=== PATIENT | male | born 1960 | race Caucasian/White ===

== ENCOUNTER 2018-09-16 20:59 | Emergency (ER) | payer OTHER ==
[~2018-09-16] VITALS: Ht 182.9 cm; Wt 90.7 kg
[~2018-09-16 20:59] MED LIST: BACTRIM DS TAB1 EACH PO; DOXYCYCLINE 10100 MG PO; ERYTHROMYCIN E3.5 G1 OP; HTN MED PO; IBUPROFEN 800800 MG PO; KEFLEX500 M1 PO; KEFLEX500 MG PO; METFORMIN HCL500 MG PO; NORCO 5-325 TA1 EACH PO; VIBRAMYCIN 100100 MG PO
[2018-09-16] MEDS ORDERED: PRINIVIL20 M1 PO (21:14)
[2018-09-16 21:29] LABS: ABSOLUTE NEUTROPHILS 4.1 thou/uL (1.4-8.2); BASOPHILS 0.4 % (0.0-2.0); EOSINOPHILS 1.6 % (0.0-3.0); HEMATOCRIT 47.6 % (42.0-52.0); HEMOGLOBIN 16.1 gm/dL (14.0-18.0); MCH 32.6 pg (26.0-34.0); MCHC 33.7 g/dL (28.0-37.0); MCV 96.7 fL (80.0-100.0); MONOCYTES 7.4 % (1.0-8.0); PLATELET COUNT 170 thou/uL (150-400); POLYS 69.6 % (36.0-66.0); RBC 4.93 mil/uL (4.50-6.00); WBC 5.9 thou/uL (4.0-11.0)
[2018-09-16 21:48] LABS: ANION GAP 7 mmol/L (7-16); BUN 13 mg/dL (7-18); CALCIUM 8.9 mg/dL (8.5-10.1); CHLORIDE 101 mmol/L (98-107); CO2 29 mmol/L (21-32); CREATININE 0.9 mg/dL (0.7-1.3); GLUCOSE 147 mg/dL (74-106); SODIUM 137 mmol/L (136-145)
[2018-09-16 21:56] LABS: ALBUMIN 3.8 g/dL (3.4-5.0); MAGNESIUM 2.1 mg/dL (1.8-2.4); SGOT 39 U/L (15-37); SGPT 35 U/L (30-65); TOTAL BILIRUBIN 0.6 mg/dL (<0.1-1.0); TROPONIN-I <0.06 ng/mL (<0.06)
[2018-09-16] MEDS ORDERED: NAPROSYN500 MG PO (22:41)
[2018-09-16 23:00] VITALS: BP 141/86
--- NOTE | 2018-09-17 09:05 | EKG ---
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 : 1960 Requested By: Rio Ortiz Order Number: [id number] MD: Ousmane Lawson Measurements Intervals [place] Rate: 104 P: 34 CO: 138 QRS: -19 QRSD: 99 T: 66 QT: 338 QTc: 445 Interpretive Statements Sinus tachycardia RSR' in V1 or V2, right VCD Left ventricular hypertrophy No previous ECG available for comparison Electronically Signed On 09-17-2018 9:05:27 CDT by Ousmane Lawson [email or web address] ��������������������������������������������� <ELECTRONICALLY SIGNED> ���������������������������������������� By: Ousmane Lawson MD, [facility] ��������������������������������������������� 09/17/18904 02 02 Ousmane Lawson MD, FACC /EPI
== END 2018-09-16 23:00 | disposition home or self-care (01) ==
LOC: ER 20:59
PROVIDERS: Emergency Medicine
DX: R07.89 Other chest pain (principal); R05 Cough; I10 Essential (primary) hypertension; E11.9 Type 2 diabetes mellitus without complications; Z87.891 Personal history of nicotine dependence

== ENCOUNTER 2020-04-22 20:46 | Inpatient (IN) | payer OTHER ==
[~2020-04-22] VITALS: Ht 185.4 cm; Wt 95.9 kg
[~2020-04-22 20:46] MED LIST changes: +NAPROSYN500 MG PO; +PRINIVIL20 M1 PO
[2020-04-22 20:48] VITALS: BP 150/88
[2020-04-22 21:09] LABS: ABSOLUTE NEUTROPHILS 3.9 thou/uL (1.4-8.2); BASOPHILS 0.6 % (0.0-2.0); EOSINOPHILS 1.6 % (0.0-3.0); HEMATOCRIT 44.6 % (42.0-52.0); HEMOGLOBIN 14.8 gm/dL (14.0-18.0); LYMPHOCYTES 34.2 % (24.0-44.0); MCH 32.2 pg (26.0-34.0); MCHC 33.2 g/dL (28.0-37.0); MONOCYTES 9.4 % (1.0-8.0); PLATELET COUNT 236 thou/uL (150-400); POLYS 54.2 % (36.0-66.0); RBC 4.59 mil/uL (4.50-6.00); RDW 12.9 % (10.5-14.5); WBC 7.2 thou/uL (4.0-11.0)
[2020-04-22 21:19] LABS: CALCIUM 8.4 mg/dL (8.5-10.1); CREATININE 0.8 mg/dL (0.7-1.3); POTASSIUM 3.8 mmol/L (3.5-5.1)
[2020-04-22 21:29] LABS: ALBUMIN 3.6 g/dL (3.4-5.0); MAGNESIUM 2.1 mg/dL (1.8-2.4); TOTAL BILIRUBIN 0.3 mg/dL (0.2-1.0); TOTAL PROTEIN 7.5 g/dL (6.4-8.2); TROPONIN-I 0.18 ng/mL (<0.06)
[2020-04-23] VITALS (15 sets, daily range): BP systolic 112–157; BP diastolic 63–105
[2020-04-23 00:25] LABS: CHOLESTEROL 194 mg/dL (<200); HDL CHOLESTEROL 63 mg/dL (>40); LDL CHOLESTEROL 93 mg/dL (<100); SERUM ASSESSMENT Clear; TC:HDL 3.1 Ratio (Not establshd); TRIGLYCERIDE 191 mg/dL (<150); VLDL 38 mg/dL (<40)
[2020-04-23 02:48] LABS: AMP/METHAMP Negative (Negative); BARBITURATES Negative (Negative); BENZODIAZEPINES Negative (Negative); COCAINE Negative (Negative); METHADONE Negative (Negative); OPIATES Negative (Negative); PCP Negative (Negative)
[2020-04-23 04:05] LABS: PHOSPHORUS 2.6 mg/dL (2.5-4.9)
[2020-04-23 04:49] LABS: FOLIC ACID 14.6 ng/mL (8.6-58.9)
[2020-04-23 06:41] LABS: CALCIUM 8.5 mg/dL (8.5-10.1); CREATININE 0.7 mg/dL (0.7-1.3); POTASSIUM 4.6 mmol/L (3.5-5.1)
--- NOTE | 2020-04-23 07:47 | EKG ---
[facility] [place] [address] ELECTROCARDIOGRAM REPORT Name: RUDI ANGLIN Room #: 170-17 ADM IN M.R.#: [id number] Admission: 04/22/20 Attend Phys: Diana Dyer MD Discharge: Date of : 58 Report #: [id number] THIS REPORT FOR: cc: SORAYA - Shyanne family physician/PCP SORAYA - Shyanne family physician/PCP Ayan Ferrell MD 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 : 1960 Requested By: Rio Ortiz Order Number: [id number] MD: Ayan Ferrell Measurements Intervals [place] Rate: 159 P: [place]: QRS: -18 QRSD: 86 T: 115 QT: 262 QTc: 427 Interpretive Statements Atrial fibrillation RSR' in V1 or V2, right VCD or RVH LVH with secondary repolarization abnormality ST depression, probably rate related Compared to ECG 09/16/2018 21:03:50 Right ventricular hypertrophy now present Early repolarization now present ST (T wave) deviation now present Sinus tachycardia no longer present Electronically Signed On 04-23-2020 7:47:04 CDT by Ayan Ferrell [email or web address] <ELECTRONICALLY SIGNED> By: Ayan Ferrell MD, [facility] 04/23/20 0747 48 48 Ayan Ferrell MD, [facility] /EPI
--- NOTE | 2020-04-23 07:48 | EKG ---
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 : 1960 Requested By: Maria Elena Chase Order Number: [id number] MD: Ayan Ferrell Measurements Intervals [place] Rate: 92 P: [place]: QRS: -16 QRSD: 100 T: 58 QT: 347 QTc: 430 Interpretive Statements Atrial fibrillation Abnormal R-wave progression, early transition Left ventricular hypertrophy Compared to ECG 04/22/2020 20:49:26 Right ventricular hypertrophy no longer present Early repolarization no longer present ST (T wave) deviation no longer present Electronically Signed On 04-23-2020 7:48:28 CDT by Ayan Ferrell [email or web address] <ELECTRONICALLY SIGNED> By: Ayan Ferrell MD, FACC 04/23/20 0748 1 1 Ayan Ferrell MD, FAC /EPI
--- NOTE | 2020-04-23 07:59 | NUR ---
ASSUMED PATIENT CARE AT 0000. PATIENT ALERT AND ORIENTED AND ABLE TO CALL APPROPRIATELY FOR NEEDS AND PARTICIPATE IN CARE. NO COMPLAINTS OF PAIN, CHEST OR OTHERWISE. CARDIZEM GTT TO GOOD EFFECT WITH RATES CONTROLLED. CRITICALLY HIGH TROPONIN THIS MORNING WITH ORDERS FOR PATIENT TO BE PLACED ON HEPARIN GTT. UP MULTIPLE TIMES TO URINATE INCIDENT FREE. CONTINUE PLAN OF CARE.
--- NOTE | 2020-04-23 08:06 | NUR ---
TO DIRECTOR OF FOOD AND NUTRITION AT 2637
--- NOTE | 2020-04-23 17:24 | CATHLAB ---
[facility] [place] [address] INVASIVE PROCEDURE REPORT Name: RUDI ANGLIN Room #: 205-P ADM IN M.R.#: [id number] Admission: 04/22/20 Attend Phys: Diana Dyer MD Discharge: Date of : 58 Report #: [id number] THIS REPORT FOR: cc: FAM - No family physician/PCP FAM - No family physician/PCP Jorge Joaquin MD [facility] ~ APPROVED REPORT Study performed: 04/23/2020 06:43:07 Patient Details Patient Status: ED Room #: The patient is a 59 year-old male Event Personnel Jorge Joaquin Poultryman, Omaira Olivier RTR ScrWilber antoine Tony RN RN, Danni Ortiz RTR Monitor Procedures Performed Left Heart Cath w/or w/o Coronaries [id number] [facility] Place w/wo Plasty Single LAD 596994 Art Access - R femoral artery* 06709 Initial Mod Sed Same Phys/QHP Gr5y 643307 58902 Mod Sed Same Phys/QHP Ea [id number] Indication Chest pain Procedure Narrative The patient was brought urgently to the Cardiac Catheterization Laboratory and was prepped and draped in a sterile manner. The Right Groin^ was infiltrated with 1% Lidocaine subcutaneous anesthesia. A PINNACLE 6FR Sheath #[id number] sheath was inserted into the RFA^. Coronary angiography was performed using coronary diagnostic catheters. The right coronary system was accessed and visualized with a JR4 catheter. The left coronary system was accessed and visualized with a JL4 catheter. The left ventricle was accessed and visualized with a STRAIGHT PIGTAIL catheter. An aortogram of the abdominal aorta was performed. Closure device was deployed with a Fr 6FR MYNX MANAGER DAIRY. The patient tolerated the procedure well and there were no complications associated with the procedure. There was no hematoma. Intraoperative Conscious Sedation Sedation start time: 9:37 Case end Time: [facility] [place] [address] INVASIVE PROCEDURE REPORT Name: RUDI ANGLIN Room #: 205-P [facility] IN ..#: [id number] Admission: 04/22/20 Attend Phys: Tsering Krause Discharge: Date of : 58 Report #: [id number] 10:45 Fentanyl 100 mcg Versed 4 mg Fluoro Time: 10.90 minutes Dose: DAP 66091.60 cGycm2 3575 mGy Contrast Type and Amount: Visipaque 185 ml Hemodynamics The aortic pressure is 120/81 mmHg with a mean of 97 mmHg. The left ventricular pressure is 119/10 mmHg with a mean of mmHg. The left ventricular end diastolic pressure is 17 mmHg. PCI Technique Lesion Percutaneous coronary intervention was performed on the distal left anterior descending artery segment. A LAUNCHER 6FR EBU 3.5 #[id number] Guide Catheter was used to engage the LAD ostium. A Luge Wire .014 x 182CM #[id number] Interventional Guidewire was used to cross the lesion. BALLOON DILATION A Balloon catheter Sprinter OTW 2.25 x 15 #[id number] was inserted and inflated up to 8atm for 8seconds. Additional Inflation: 6.00atm for 19seconds. Additional Inflation: 6.00atm for 11seconds. PCI Technique Lesion 2 Percutaneous coronary intervention was performed on the proximal left anterior descending artery segment. A LAUNCHER 6FR EBU 3.5 #[id number] Guide Catheter was used to engage the LAD ostium. A Luge Wire .014 x 182CM #[id number] Interventional Guidewire was used to cross the lesion. Balloon Dilation A Balloon catheter Sprinter OTW 2.25 x 15 #[id number] was inserted and inflated up to 10atm for 19seconds. Additional Inflation: 12atm for 18seconds. Additional Inflation: 18atm for 24seconds. Stent Deployment A stent RESOLUTE TAMIKO RX 2.75 X 38 #[id number] was inserted and inflated up to 14atm for 37seconds. Post Stent Deployment Balloon Dilation A Balloon catheter TREK NC OTW 3.0 X 15 #[id number] was inserted and inflated up to 10atm for 20seconds. Additional Inflation: 16atm for 24seconds. Additional Inflation: 16atm for 16seconds. Conclusion [facility] [address] [place] [address] INVASIVE PROCEDURE REPORT Name: RUDI ANGLIN Room #: 205-P [facility] IN M.R.#: [id number] Admission: 04/22/20 Attend Phys: Tsering Krause Discharge: Date of : 58 Report #: [id number] #1. Successful PTCA stent of subtotaled proximal and proximal mid LAD lesions with moderate calcification. Placement of a 2.75 x 38 resolute Tamiko stent postdilated to 3.0 mm in size JOVANNA grade III flow. #2 successful PTCA of a high-grade distal LAD lesion with balloon angioplasty alone. 90% to 20% with JOVANNA grade III flow this extends around the apex. There is a moderate 70% mid vessel lesion calcified at a diagonal takeoff we will treat this medically. #3 left main with mild disease giving rise to the LAD and circumflex. #4 circumflex OM is nondominant moderate in size the first OM has a 70% eccentric lesion moderate distribution will follow the mid distal circumflex also has a 70% lesion will follow filling a smaller distal OM or PDA equivalent codominant vessel. #5 mildly diseased and relatively small codominant RCA giving rise to a small PDA diffusely diseased #6 normal left jugular size with anterior apical hypokinesis EF 50% range. #7 abdominal aorta is intact without evidence of significant aneurysm mild tortuosity noted. Recommendations and plan: Continue aggressive risk factor modification. Dual antiplatelet therapy initiated. Patient had extremely complex LAD disease but final result is very acceptable. Moderate mid distal LAD and circumflex stenoses will follow. Transfer to CCU in stable condition chest pain-free and hemodynamically intact <ELECTRONICALLY SIGNED> By: Jorge Joaquin MD, FACC 04/23/201723 23 23 Jorge Joaquin MD, FACC /INF
--- NOTE | 2020-04-23 19:50 | NUR ---
PATIENT TO THE UNIT POST CARDIAC CATH - PT ORIENTED TO ROOM AND BEDSPACE. NO CO'S OF PAIN OR NAUSEA. VIDAL DIET AND FLUIDS. PT UP IN ROOM PRIOR TO BEDREST RESTRICTION DONE AFTER BEING INFORMED THAT HE COULD NOT GET UP - GROIN SITE HAS REMINED STABLE. PT IN A FIB - WHEN AT REST RATE IN THE 80'S POST BEDREST PT UP TO THE CHAIR AND WHEN HE MOVES AROUND RATE CAN GET INTO THE 140'S THEN COMES BACK DOWN AGAIN - CARDIZEM REMAINS AT 5 MGS AN HOUR. IV FLUIDS INFUSING ORDERED. NO CO'S AT THE PRESENT TIME.
[2020-04-24 00:11] VITALS: BP 123/87
[2020-04-24 02:06] LABS: GLYCOHEMOGLOBIN (HGB A1C) 5.2 % (4.8-5.6)
[2020-04-24 04:05] VITALS: BP 137/90
--- NOTE | 2020-04-24 04:30 | NUR ---
ASSESSMENT DOCUMENTED. PT BEEN RESTING IN NO ACUTE DISTRESS.A/OX4.VSS.S/P CARDIAC AMERICO.PT WAS ON CARDIZEM DRIP AT THE BEGINNING OF THE SHIFT.BY MIDNIGHT PT HAD CONVERTED TO SINUS RHYTHM IN 60S.CARDIZEM DRIP TURNED OFF.PT HAS MAINTAINED SINUS RHYTHM IN 60S.DENIES CHEST PAIN OR ANY DISTRESS.PT ANTICIPATING DISCHARGE THIS AM.
[2020-04-24 06:30] LABS: HEMATOCRIT 44.2 % (42.0-52.0); HEMOGLOBIN 14.7 gm/dL (14.0-18.0); MCH 32.5 pg (26.0-34.0); MCHC 33.3 g/dL (28.0-37.0); MCV 97.6 fL (80.0-100.0); RBC 4.53 mil/uL (4.50-6.00); RDW 13.1 % (10.5-14.5); WBC 6.9 thou/uL (4.0-11.0)
[2020-04-24 06:48] LABS: ALBUMIN 3.3 g/dL (3.4-5.0); CALCIUM 8.5 mg/dL (8.5-10.1); CREATININE 0.8 mg/dL (0.7-1.3); POTASSIUM 4.2 mmol/L (3.5-5.1); TOTAL BILIRUBIN 0.7 mg/dL (0.2-1.0); TOTAL PROTEIN 7.1 g/dL (6.4-8.2)
[2020-04-24 06:49] LABS: TROPONIN-I 1.03 ng/mL (<0.06)
--- NOTE | 2020-04-24 07:41 | EKG ---
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 : 1960 Requested By: Patricia Brown Order Number: [id number] MD: Ousmane Lawson Measurements Intervals [place] Rate: 65 P: 37 [place]: 149 QRS: -24 QRSD: 108 T: 70 QT: 418 QTc: 435 Interpretive Statements Sinus arrhythmia Abnormal R-wave progression, early transition LVH with secondary repolarization abnormality Compared to ECG 04/23/2020 05:22:58 Early R wave progression is now present Atrial fibrillation no longer present Electronically Signed On 04-24-2020 7:41:05 CDT by Ousmane Lawson [email or web address] <ELECTRONICALLY SIGNED> By: Ousmane Lawson MD, FACC 04/24/2041 5 5 Ousmane Lawson MD, FACC /EPI
[2020-04-24] MEDS ORDERED: ASPIR 8181 MG PO (08:00)
[2020-04-24] MEDS ORDERED: COZAAR 50 MG TA50 MG PO (08:00)
[2020-04-24] MEDS ORDERED: METOPROLOL SUCC50 MG PO (08:00)
[2020-04-24] MEDS ORDERED: LIPITOR40 MG PO (08:00)
[2020-04-24] MEDS ORDERED: PLAVIX 75 MG TA75 MG PO (08:00)
--- NOTE | 2020-04-24 08:44 | 2DMMODE ---
[facility] [place] [address] 2 D/M-MODE ECHOCARDIOGRAM Name: RUDI ANGLIN HALINA Room #: 205-P ADM IN M.R.#: [id number] Admission: 04/22/20 Attend Phys: Diana Dyer MD Discharge: Date of : 58 Report #: [id number] THIS REPORT FOR: cc: FAM - No family physician/PCP FAM - No family physician/PCP Ousmane Lawson MD [facility] ~ APPROVED REPORT Study performed: 04/24/2020 07:51:46 EXAM: Comprehensive 2D, Doppler, and color-flow Echocardiogram Patient Location: Bedside Room #: 205 Status: routine BSA: 2.20 HR: 68 bpm BP: 137/90 mmHg Rhythm: NSR Other Information Study Quality: Adequate Indications NSTEMI S/P Intervention. Afib. Hx: HTN, DM. Echo Enhancing Agent Indication: Endocardial border delineation Agent(s) / Amount(s) Used: Optison 4 cc 2D Dimensions RVDd: 35.53 mm IVSd: 10.94 (7-11mm) LVOT Diam: 21.80 (18-24mm) LVDd: 49.37 mm PWd: 10.52 (7-11mm) Ascending Ao: 39.66 (22-36mm) LVDs: 36.32 (25-40mm) Aortic Root: 36.02 mm Volumes Left Atrial Volume (Systole) Single Plane 4CH: 48.92 mL Single Plane 2CH: 58.97 mL LA ESV Index: 26.00 mL/m2 Aortic Valve [facility] [place] [address] 2 D/M-MODE ECHOCARDIOGRAM Name: RUDI ANGLIN Room #: 205-P ADM IN M.R.#: [id number] Admission: 04/22/20 Attend Phys: Tsering Krause Discharge: Date of : 58 Report #: [id number] AoV Peak Gopal.: 1.32 m/s AO Peak Gr.: 7.02 mmHg LVOT Max P.76 mmHg LVOT Max V: 0.83 m/s AMBAR Vmax: 2.34 cm2 Mitral Valve E/A Ratio: 1.2 MV Decel. Time: 209.86 ms MV E Max Gopal.: 0.59 m/s MV A Gopal.: 0.50 m/s MV PHT: 60.86 ms IVRT: 78.43 ms Pulmonary Valve PV Peak Gopal.: 1.06 m/s PV Peak Gr.: 4.49 mmHg Pulmonary Vein P Vein S: 0.35 m/s P Vein A: 0.34 m/s P Vein D: 0.25 m/s P Vein A Dur.: 129.2 msec P Vein S/D Ratio: 1.40 Tricuspid Valve TR Peak Gopal.: 2.37 m/s RAP Estimate: 5.00 mmHg TR Peak Gr.: 22.49 mmHg PA Pressure: 27.00 mmHg Left Ventricle The left ventricle is normal size. There is normal LV segmental wall motion. Mild septal hypertrophy is present. Left ventricular systolic function is normal. LVEF is 55-60%. Moderate diastolic dysfunction is present. Right Ventricle The right ventricle is normal size. The right ventricular systolic function is normal. Atria The left atrium size is normal. The right atrium size is normal. Aortic Valve The aortic valve is normal in structure No aortic regurgitation is present. There is no aortic valvular stenosis. Mitral Valve The mitral valve is normal in structure. Trace mitral regurgitation. [facility] [address] [place] [address] 2 D/M-MODE ECHOCARDIOGRAM Name: RUDI ANGLIN HALINA Room #: [facility] IN .R.#: [id number] Admission: 04/22/20 Attend Phys: Tsering Krause Discharge: Date of : 58 Report #: [id number] No evidence of mitral valve stenosis. Tricuspid Valve The tricuspid valve is normal in structure. Trace tricuspid regurgitation. Estimated PAP is 25-30mmHg. Pulmonic Valve The pulmonary valve is normal in structure. Trace pulmonic regurgitation. Great Vessels The aortic root is normal in size. The ascending aorta is mildly dilated (4.0cm). IVC is normal in size and collapses >50% with inspiration. Pericardium There is no pericardial effusion. <Conclusion> Left ventricular systolic function is normal. There is normal LV segmental wall motion. LVEF is 55-60%. Moderate diastolic dysfunction The aortic valve is normal in structure. No aortic regurgitation or stenosis The mitral valve is normal in structure. Trace mitral regurgitation. Trace tricuspid regurgitation. Estimated pulmonary artery pressure of 25-30mmHg. The ascending aorta is mildly dilated (4.0cm). There is no pericardial effusion. <ELECTRONICALLY SIGNED> By: Ousmane Lawson MD, FACC 04/24/2044 3 3 Ousmane Lawson MD, FACC /INF
[2020-04-24 11:40] VITALS: BP 137/90
--- NOTE | 2020-04-24 12:07 | NUR ---
ASSESSMENT CHARTED - MEDS PER JOSEP DRAKE DIET AND FLUIDS. NO CO'S OF PAIN OR NAUSEA. UP AD TAO ON THE UNIT. ECHO COMPLETED THIS AM ORDERED - PT HOME - INSTRUCTION RE HOME MEDS/ CARE AND FOLLOW UP GIVEN TO PATIENT - STATED UNDERSTANDING ON INSTSRUCTION GIVEN - SEEN BE CARDIAC REHAB THIS AM. LEFT UNIT AMBULATORY ACCOM BY NURSE - HOME VIA PVT VEHICLE ACCOMPANIED BY DEBRA. IV AND MONITOR REMOVED PRIOR TO D/C. NO CO'S AT TIME OF DISCHARGE.
== END 2020-04-24 12:00 | disposition home or self-care (01) | DRG 246 ==
LOC: ER 20:46 → EROBS 22:22 → 2N 22:22
PROVIDERS: Emergency Medicine; Nurse Practitioner Adult Health; Nurse Practitioner Family; ADMIT Hospitalist; ATTEND Hospitalist
PROC: B211YZZ Fluoroscopy of Multiple Coronary Arteries using Other Contrast (ICD-10-PCS; principal; 2020-04-23)
PROC: 4A023N7 Measurement of Cardiac Sampling and Pressure, Left Heart, Percutaneous Approach (ICD-10-PCS; principal; 2020-04-23)
PROC: B410YZZ Fluoroscopy of Abdominal Aorta using Other Contrast (ICD-10-PCS; principal; 2020-04-23)
PROC: 02703ZZ Dilation of Coronary Artery, One Artery, Percutaneous Approach (ICD-10-PCS; principal; 2020-04-23)
PROC: 027034Z Dilation of Coronary Artery, One Artery with Drug-eluting Intraluminal Device, Percutaneous Approach (ICD-10-PCS; principal; 2020-04-23)
DX: I21.4 Non-ST elevation (NSTEMI) myocardial infarction (principal); I50.31 Acute diastolic (congestive) heart failure; I48.20 Chronic atrial fibrillation, unspecified; E11.9 Type 2 diabetes mellitus without complications; I10 Essential (primary) hypertension; M19.90 Unspecified osteoarthritis, unspecified site; F10.10 Alcohol abuse, uncomplicated; I25.10 Atherosclerotic heart disease of native coronary artery without angina pectoris; Y90.9 Presence of alcohol in blood, level not specified; I16.0 Hypertensive urgency; Z79.899 Other long term (current) drug therapy; Z79.84 Long term (current) use of oral hypoglycemic drugs; Z87.891 Personal history of nicotine dependence; Z91.14 Patient's other noncompliance with medication regimen
CPT/HCPCS: 10081

== ENCOUNTER 2020-04-27 19:49 | Inpatient (IN) | payer OTHER ==
[~2020-04-27] VITALS: Ht 185.4 cm; Wt 102.5 kg
[~2020-04-27 19:49] MED LIST changes: +ASPIR 8181 MG PO; +COZAAR 50 MG TA50 MG PO; +LIPITOR40 MG PO; +METOPROLOL SUCC50 MG PO; +PLAVIX 75 MG TA75 MG PO
[2020-04-27 19:59] VITALS: BP 169/96
[2020-04-27 20:21] LABS: ABSOLUTE NEUTROPHILS 5.4 thou/uL (1.4-8.2); BASOPHILS 0.4 % (0.0-2.0); EOSINOPHILS 0.7 % (0.0-3.0); HEMOGLOBIN 15.6 gm/dL (14.0-18.0); LYMPHOCYTES 13.2 % (24.0-44.0); MCH 32.8 pg (26.0-34.0); MCV 96.5 fL (80.0-100.0); MONOCYTES 8.5 % (1.0-8.0); PLATELET COUNT 233 thou/uL (150-400); POLYS 77.2 % (36.0-66.0); RBC 4.77 mil/uL (4.50-6.00); RDW 12.8 % (10.5-14.5); WBC 6.9 thou/uL (4.0-11.0)
[2020-04-27 20:29] LABS: CALCIUM 8.7 mg/dL (8.5-10.1); POTASSIUM 4.2 mmol/L (3.5-5.1)
[2020-04-27 20:39] LABS: ALBUMIN 3.7 g/dL (3.4-5.0); TOTAL BILIRUBIN 0.5 mg/dL (0.2-1.0); TOTAL PROTEIN 7.8 g/dL (6.4-8.2); TROPONIN-I 0.11 ng/mL (<0.06)
[2020-04-27 22:51] VITALS: BP 155/94
[2020-04-27 23:01] VITALS: BP 155/94
[2020-04-27 23:15] VITALS: BP 158/99
--- NOTE | 2020-04-28 01:41 | NUR ---
RECEIVED REPORT FROM GERTRUDIS BLACKMON RN.PATIENT A/O X 4.DENIES CHEST PAIN AND SOB.MONITOR SHOWS SR,NPO SINCE MIDNIGHT.POC CONTINUED.
[2020-04-28 02:36] LABS: ABSOLUTE NEUTROPHILS 4.6 thou/uL (1.4-8.2); BASOPHILS 0.6 % (0.0-2.0); EOSINOPHILS 1.3 % (0.0-3.0); HEMATOCRIT 46.2 % (42.0-52.0); HEMOGLOBIN 15.3 gm/dL (14.0-18.0); LYMPHOCYTES 22.4 % (24.0-44.0); MCH 32.4 pg (26.0-34.0); MCHC 33.2 g/dL (28.0-37.0); MCV 97.6 fL (80.0-100.0); MONOCYTES 10.4 % (1.0-8.0); PLATELET COUNT 234 thou/uL (150-400); POLYS 65.3 % (36.0-66.0); RBC 4.74 mil/uL (4.50-6.00); RDW 12.9 % (10.5-14.5); WBC 7.1 thou/uL (4.0-11.0)
[2020-04-28 02:42] LABS: CALCIUM 8.6 mg/dL (8.5-10.1); MAGNESIUM 2.1 mg/dL (1.8-2.4); POTASSIUM 4.2 mmol/L (3.5-5.1)
[2020-04-28 04:53] VITALS: BP 144/89
[2020-04-28 08:14] VITALS: BP 148/100
--- NOTE | 2020-04-28 10:22 | 2DMMODE ---
[address] [address] 2 D/M-MODE ECHOCARDIOGRAM Name: RUDI ANGLIN Room #: 208-P ADM IN M.R.#: [id number] Admission: 04/27/20 Attend Phys: Mando Wilcox Discharge: Date of : 58 Report #: [id number] THIS REPORT FOR: cc: SORAYA - Shyanne family physician/PCP SORAYA - No family physician/PCP Ayan Ferrell MD [facility] ~ APPROVED REPORT Study performed: 04/28/2020 09:38:59 EXAM: Limited 2D Echocardiogram Patient Location: Bedside Room #: 208 Status: routine BSA: 2.26 HR: 66 bpm BP: 148/100 mmHg Rhythm: NSR Other Information Study Quality: Good Indications Limited follow up echo for LV function; chest pain. Status post NSTEMI with PCI on 04/23/2020. Hx: Afib, HTN, HLP, DM, ETOH abuse. Left Ventricle The left ventricle is normal size. Left ventricular systolic function is normal. LVEF is 50-55%. Right Ventricle The right ventricle is normal size. The right ventricular systolic function is normal. Atria The left atrium size is normal. The right atrium size is normal. Aortic Valve The aortic valve is normal in structure. Mitral Valve The mitral valve is normal in structure. [address] [address] 2 D/M-MODE ECHOCARDIOGRAM Name: RUDI ANGLIN HALINA Room #: 208-P ADM IN M.R.#: [id number] Admission: 04/27/20 Attend Phys: Mando Aguilar Discharge: Date of : 58 Report #: [id number] Tricuspid Valve The tricuspid valve is normal in structure. Pulmonic Valve The pulmonary valve is normal in structure. Great Vessels IVC is normal in size and collapses >50% with inspiration. Pericardium There is no pericardial effusion. <Conclusion> Normal left ventricle size, wall thickness and systolic function, ejection fraction of 55% Mild distal anteroapical hypokinesis Adequate cusp excursion both the mitral as well as aortic valve Tricuspid aortic valve No pericardial effusion <ELECTRONICALLY SIGNED> By: Ayan Ferrell MD, FACC 04/28/20 1021 102 20 Ayan Ferrell MD, FACC /INF
--- NOTE | 2020-04-28 13:54 | CATHLAB ---
[facility] [address] [address] INVASIVE PROCEDURE REPORT Name: RUDI ANGLIN Room #: 208-P ADM IN M.R.#: [id number] Admission: 04/27/20 Attend Phys: Mando Wilcox Discharge: Date of : 58 Report #: [id number] THIS REPORT FOR: cc: FAM - No family physician/PCP FAM - No family physician/PCP Marcus Thurman MD ~ APPROVED REPORT Study performed: 04/28/2020 12:02:41 Patient Details The patient is a 59 year-old male Event Personnel Marcus Thurman Compounder [employer], Ion Collins RTR Monitor, Susan Alaniz RTR Scrub, Omaira Olivier RTR Scrub, Julita Clarke RN RN, Silas Dia RN RN, Rosibel Centeno RN pantograph machine operator Performed Art Access - L femoral artery* Left Heart Cath w/or w/o Coronaries [id number] [facility] ANGIE Place w/wo Plasty Single OM [id number] Hemostasis w/ Mynx Indication Dyspnea, Unstable angina , Chest pain Risk Factors HypercholesterolemiaPhysical Activity, Coronary Artery DiseaseHypertension, Diabetes Previous Procedures/Diagnoses Previous PCI, Previous [place] Procedure Narrative The Left Groin^ was infiltrated with 1% Lidocaine subcutaneous anesthesia. A PINNACLE 6FR Sheath #[id number] sheath was inserted into the LFA^. Coronary angiography was performed using coronary diagnostic catheters. The right coronary system was accessed and visualized with a JR4 catheter. The left coronary system was accessed and visualized with a JL4 catheter. Left ventricular/Aortic Valve gradient assessed via catheter pullback. Pre-demployment femoral angiogram was performed . Closure device was deployed with a 6 Fr MYNXGRIP 6/7F #[id number]. Hemostasis was obtained with manual pressure following sheath removal without any complications. The patient [facility] [place] [address] INVASIVE PROCEDURE REPORT Name: RUDI ANGLIN VERNON Room #: 208-[facility] IN ..#: [id number] Admission: 04/27/20 Attend Phys: Mando Aguilar Discharge: Date of : 58 Report #: [id number] tolerated the procedure well and there were no complications associated with the procedure. There was no hematoma. Intraoperative Conscious Sedation Sedation start time: 1206 Case end Time: 1310 Fentanyl 50 mcg Versed 1 mg Fluoro Time: 10.26 minutes Dose: DAP 55478.60 cGycm2 1819 mGy Contrast Type and Amount: Omnipaque 240 ml Coronary Angiography The patient's coronary anatomy is co- dominant. Diagnostic Cath Left Main The left main artery is a large-caliber vessel, patent with no flow-limiting lesions. LAD There is a stent in the proximal LAD segment, patent with mild restenosis within the mid portion of the stent. The mid/distal LAD tapers down to a small to moderate-sized caliber vessel. There appears to be mild diffuse disease within the mid segment. Diagonal 1 This is a small caliber vessel, jailed by the stent. Diagonal 2 This is a small to moderate size caliber vessel, patent with no flow-limiting lesions. Circumflex The left circumflex artery is a moderate-sized caliber vessel, codominant. There is a mild stenosis in the distal segment, 30%. OM1 This is a moderate-sized caliber vessel with a severe proximal stenosis, 80%. OM2 This is a moderate size caliber vessel, with a moderate stenosis in the proximal segment, 50%. Right Coronary The RCA vessel has mild disease in the mid segment. R PDA There is mild to moderate diffuse disease within the mid segment, 30 to 40%. Left Ventriculography Left Ventriculography was not performed. Ejection Fraction was >55% based off patient's Echocardiogram. An LVEDP was measured and there is no gradient across across the outflow tract. Hemodynamics The aortic pressure is 160/82 mmHg with a mean of 104 mmHg. The left ventricular pressure is 146/10 mmHg with a mean of mmHg. The [address] [address] INVASIVE PROCEDURE REPORT Name: RUDI ANGLIN Room #: 208-P [facility] IN M.R.#: [id number] Admission: 04/27/20 Attend Phys: Mando Aguilar Discharge: Date of : 58 Report #: [id number] ventricular end diastolic pressure is 18 mmHg. PCI Technique Lesion Percutaneous coronary intervention was performed on the first obtuse marginal branch segment. The lesion stenosis prior to intervention was 80% with JOVANNA 3 flow. A VISTA 6FR XB 3.5 #[id number] Guide Catheter was used to engage the OM ostium. A Luge Wire .014 x 182CM #[id number] Interventional Guidewire was used to cross the lesion. BALLOON DILATION A Balloon catheter TREK RX 2.50 X 8 #[id number] was inserted and inflated up to 8.00atm for 8seconds. Additional Inflation: 12.00atm for 19seconds. Additional Inflation: 8.00atm for 11seconds. STENT DEPLOYMENT A drug-eluting stent RESOLUTE TAMIKO RX 2.75 X 18 #[id number] was inserted and inflated up to 14.00atm for 19seconds. Additional Inflation: 16.00atm for 11seconds. POST STENT DEPLOYMENT BALLOON DILATION A Balloon catheter TREK NC RX 3.0 X 12 #[id number] was inserted and inflated up to 16.00atm for 16seconds. Additional Inflation: 14.00atm for 11seconds. Additional Inflation: 16.00atm for 17seconds. Final angiography reveals 0 % stenosis with JOVANNA 3 flow. Conclusion 1. Successful insertion of a drug-eluting stent into the first obtuse marginal artery. 2. There is a widely patent stent in the proximal LAD with mild restenosis in the midportion of the stent. 3. There is a moderate stenosis in the second obtuse marginal artery. 4. There is mild diffuse disease within the mid segment of the LAD. 5. Recommend dual antiplatelet therapy and aggressive risk factor management. <ELECTRONICALLY SIGNED> By: Marcus Thurman MD 04/28/20 1354 1354 1354 Marcus Thurman MD /INF
--- NOTE | 2020-04-28 15:38 | EKG ---
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 : 1960 Requested By: Marcus Thurman Order Number: [id number] MD: Ayan Ferrell Measurements Intervals [place] Rate: 61 P: 5 MI: 159 QRS: -17 QRSD: 105 T: 29 QT: 429 QTc: 432 Interpretive Statements Sinus rhythm RSR' in V1 only Left ventricular hypertrophy Compared to ECG 04/24/2020 07:36:17 Sinus arrhythmia no longer present Early repolarization no longer present Electronically Signed On 04-28-2020 15:38:12 CDT by Ayan Ferrell [email or web address] <ELECTRONICALLY SIGNED> By: Ayan Ferrell MD, FACC 04/28/20 1538 1320 1320 Ayan Ferrell MD, [facility] /EPI
--- NOTE | 2020-04-28 16:58 | NUR ---
ASSESSMENT CHARTED - MEDS PER MAR - NO CO'S OF PAIN OR [place]. VIDAL DIET AND FLUIDS. PT NPO FOR CATH THIS AM - TO INDUSTRIAL ECONOMIST AND STENT PLACED. GROIN AND VSS POST PROCEDURE - GROIN HAS REMIANED STABLE POST BEDREST. PT UP AD TAO IN ROOM. NO CO'S AT THE PRESENT TIME.
[2020-04-28 19:35] VITALS: BP 147/91
--- NOTE | 2020-04-29 02:55 | NUR ---
ASSUMED CARE OF PATIENT AT 1900. LEFT GROIN CATH SITE REMAINS SOFT, PEDAL PULSES PALPABLE. DRESSING TO SITE IS C/D/I. PATIENT DENIES PAIN AT ASSESSMENT.
[2020-04-29 05:18] LABS: HEMATOCRIT 45.2 % (42.0-52.0); HEMOGLOBIN 14.7 gm/dL (14.0-18.0); MCHC 32.5 g/dL (28.0-37.0); MCV 98.6 fL (80.0-100.0); RBC 4.59 mil/uL (4.50-6.00); RDW 12.8 % (10.5-14.5); WBC 5.8 thou/uL (4.0-11.0)
[2020-04-29 05:20] LABS: ALBUMIN 3.5 g/dL (3.4-5.0); CALCIUM 8.6 mg/dL (8.5-10.1); CREATININE 0.9 mg/dL (0.7-1.3); POTASSIUM 4.3 mmol/L (3.5-5.1); TOTAL BILIRUBIN 0.9 mg/dL (0.2-1.0); TOTAL PROTEIN 7.2 g/dL (6.4-8.2)
[2020-04-29 05:52] VITALS: BP 129/82
[2020-04-29 08:00] VITALS: BP 128/83
--- NOTE | 2020-04-29 08:56 | EKG ---
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 : 1960 Requested By: Marcus Thurman Order Number: [id number] MD: Ousmane Lawson Measurements Intervals [place] Rate: 65 P: 2 HI: 157 QRS: -24 QRSD: 104 T: 49 QT: 405 QTc: 422 Interpretive Statements Sinus rhythm Left ventricular hypertrophy Baseline wander in lead(s) V1 Compared to ECG 04/28/2020 13:20:49 No significant changes Electronically Signed On 04-29-2020 8:55:59 CDT by Ousmane Lawson [email or web address] <ELECTRONICALLY SIGNED> By: Ousmane Lawson MD, [facility] 04/29/20 0855 6 6 Ousmane Lawson MD, [facility] /EPI
[2020-04-29 11:12] VITALS: BP 128/83
--- NOTE | 2020-04-29 12:12 | NUR ---
ASSESSMENT CHARTED. PT ALERT AND ORIENTED. VSS. DENIED HAVING PAIN OR DISCOMFORT. ORDERS GIVEN TO DISCHARGE PT TO HOME. DISCHARGE INSTRUCTIONS GIVEN TO PT. PT VERBERLISED UNDERSTANDING.
--- NOTE | 2020-05-01 07:41 | EKG ---
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
== END 2020-04-29 12:16 | disposition home or self-care (01) | DRG 246 ==
LOC: ER 19:49 → EROBS 22:23 → 2N 22:23 → ER 23:05 → 2N 23:14
PROVIDERS: Emergency Medicine; Internal Medicine Cardiovascular Disease; Nurse Practitioner Family; ADMIT Hospitalist; ATTEND Hospitalist
PROC: B41G1ZZ Fluoroscopy of Left Lower Extremity Arteries using Low Osmolar Contrast (ICD-10-PCS; principal; 2020-04-28)
PROC: B2111ZZ Fluoroscopy of Multiple Coronary Arteries using Low Osmolar Contrast (ICD-10-PCS; principal; 2020-04-28)
PROC: 027034Z Dilation of Coronary Artery, One Artery with Drug-eluting Intraluminal Device, Percutaneous Approach (ICD-10-PCS; principal; 2020-04-28)
PROC: 4A023N7 Measurement of Cardiac Sampling and Pressure, Left Heart, Percutaneous Approach (ICD-10-PCS; principal; 2020-04-28)
DX: I21.4 Non-ST elevation (NSTEMI) myocardial infarction (principal); I50.31 Acute diastolic (congestive) heart failure; I25.10 Atherosclerotic heart disease of native coronary artery without angina pectoris; I10 Essential (primary) hypertension; E11.9 Type 2 diabetes mellitus without complications; I48.91 Unspecified atrial fibrillation; M19.90 Unspecified osteoarthritis, unspecified site; E78.5 Hyperlipidemia, unspecified; F10.20 Alcohol dependence, uncomplicated; Z79.82 Long term (current) use of aspirin; Z79.899 Other long term (current) drug therapy; Z87.891 Personal history of nicotine dependence; Z95.5 Presence of coronary angioplasty implant and graft; Z82.49 Family history of ischemic heart disease and other diseases of the circulatory system; Z91.14 Patient's other noncompliance with medication regimen
CPT/HCPCS: 10081

== ENCOUNTER → 2020-07-28 | Outpatient (CLI) | payer OTHER | LOC: SJCVCIMAG 09:42 | PROVIDERS: ATTEND Internal Medicine Cardiovascular Disease | DX: R00.0 Tachycardia, unspecified (principal); I25.10 Atherosclerotic heart disease of native coronary artery without angina pectoris; I48.91 Unspecified atrial fibrillation; I10 Essential (primary) hypertension; E78.5 Hyperlipidemia, unspecified; I25.2 Old myocardial infarction; Z82.49 Family history of ischemic heart disease and other diseases of the circulatory system; Z87.891 Personal history of nicotine dependence; Z79.82 Long term (current) use of aspirin; Z79.899 Other long term (current) drug therapy; Z98.61 Coronary angioplasty status ==

== ENCOUNTER → 2020-08-12 | Outpatient (CLI) | payer OTHER | LOC: LAB 14:14 | PROVIDERS: ATTEND Family Medicine | DX: J02.9 Acute pharyngitis, unspecified (principal); R50.9 Fever, unspecified; R05 Cough; R06.02 Shortness of breath; Z20.822 Contact with and (suspected) exposure to COVID-19 ==